=== PATIENT | female | born 1980 | race American Indian/Alaskan Native ===

== ENCOUNTER 2016-07-06 02:15 | Emergency (ER) | payer MEDICAID ==
[2016-07-06 03:38] VITALS: BP 128/73
== END 2016-07-06 03:21 | disposition left against medical advice (07) ==
LOC: ED 02:15
DX: R11.0 Nausea (principal); H53.149 Visual discomfort, unspecified; G43.909 Migraine, unspecified, not intractable, without status migrainosus; Z53.21 Procedure and treatment not carried out due to patient leaving prior to being seen by health care provider

== ENCOUNTER 2020-12-14 08:32 | Emergency (ER) | payer MEDICAID ==
[2020-12-14 08:45] VITALS: BP 138/76
[2020-12-14] MEDS ORDERED: ONDANSETRON 4 MG ODT TAB PO ONE (09:38)
--- NOTE | 2020-12-14 09:43 | Emergency Department Report ---
ED Headache HPI - General Chief Complaint: Headache Stated Complaint: MIGRAINE X 2 DAYS, NAUSEA, DIZZINESS Time Seen by Provider: 12/14/20 09:31 Source: patient - History of Present Illness Initial Comments: 40-year-old -[place] female presents to the emergency room complaining of migraine exacerbation for the last few days. Patient states that she feels like she is going to pass out. She states that she has a history of of migraines but has not had one in a while. Patient states that she has pressure behind her eyes. She admits to photophobia nausea that started this morning no vomiting at this time. She does admit to intermittent heavy cycles. Last menstrual period was 11/15/2020. She has tried Advil, Aleve and Tylenol with no relief. Patient currently does not have a primary care provider. She denies any trauma to her head. Does report 7 ringing of her ears. Timing/Duration: other (3 days) Quality: moderate, constant, pressure Head Injury Location: global Recent Head Trauma: occasional headaches Modifying Factors: improves with: exposure to light, movement Associated Symptoms: nausea/vomiting (No vomiting), other (Feeling off balance). denies: loss of consciousness, sinus infection, vision changes Allergies/Adverse Reactions: Allergies No Known Allergies Allergy (Verified 11/02/15 08:17) Home Medications: Ambulatory Orders HYDROcodone/APAP 5-325 [[place] 5/325] 1 each PO Q4HR PRN #10 tablet 11/02/15 Nitrofurantoin [place]/M-Cryst [Macrobid CAP] 100 mg PO Q12HR #7 capsule 11/02/15 Ondansetron [Zofran Odt] 4 mg PO Q8HR PRN #12 tab.rapdis 12/14/20 SUMAtriptan succinate [Imitrex] 25 mg PO QID PRN #12 tablet 12/14/20 ED Review of Systems ROS: Stated complaint: MIGRAINE X 2 DAYS, NAUSEA, DIZZINESS Other details as noted in HPI Comment: All other systems reviewed and negative ED Past Medical Hx - Past Medical History Previous Medical History?: Yes Hx Hypertension: Yes Additional medical history: anemia - Surgical History Past Surgical History?: Yes Additional Surgical History: , breast reduction - Social History Smoking Status: Never Smoker Substance Use Type: None - Medications Home Medications: Home Medications Medication Instructions Recorded Confirmed Last Taken Type HYDROcodone/APAP 5-325 [[place] 1 each PO Q4HR PRN #10 tablet 11/02/15 Unknown Rx 5/325] Nitrofurantoin [place]/M-Cryst 100 mg PO Q12HR #7 capsule 11/02/15 Unknown Rx [Macrobid CAP] Ondansetron [Zofran Odt] 4 mg PO Q8HR PRN #12 tab.rapdis 12/14/20 Unknown Rx SUMAtriptan succinate [Imitrex] 25 mg PO QID PRN #12 tablet 12/14/20 Unknown Rx ED Physical Exam - General Limitations: No Limitations General appearance: alert, in no apparent distress - Head Head exam: Present: atraumatic, normocephalic - Eye Eye exam: Present: normal appearance, PERRL, EOMI - ENT ENT exam: Present: normal orophraynx, mucous membranes moist - Neck Neck exam: Present: normal inspection, full ROM - Respiratory Respiratory exam: Absent: accessory muscle use - Cardiovascular Cardiovascular Exam: Present: regular rate - Extremities Exam Extremities exam: Present: normal inspection, full ROM - Back Exam Back exam: Present: normal inspection, full ROM - Neurological Exam Neurological exam: Present: alert, oriented X3, CN II-XII intact, normal gait - Expanded Neurological Exam Expanded Cranial nerves: EOM's Intact: Normal, Gag Reflex: Normal, Tongue Deviation: Normal, Nystagmus: Normal, Facial Sensation: Normal, Facial Palsy with Forehead Movement: Normal, Facial Palsy without Forehead Movement: Normal Cerebellar function: Finger to Nose: Normal, Heel to [place]: Normal, Romberg: Normal Upper motor neuron: Nitesh Neglect: Normal, Pronator Drift: Normal, Babinski Sign: Normal, Sensory Extinction: Normal Sensory exam: Upper Extremity Light Touch: Normal, Upper Extremity Pin Prick: Normal, Upper Extremity Temperature: Normal, UE 2 Point Discrimination: Normal, Lower Extremity Light Touch: Normal, Lower Extremity Pin Prick: Normal, Lower Extremity Temperature: Normal, LE 2 Point Discrimination: Normal Motor strength exam: RUE: 4, LUE: 4, RLE: 4, LLE: 4 Best Eye Response ([place]): (4) open spontaneously Best Motor Response ([place]evgen[place]): (6) obeys commands Best Verbal Response ([place]): (5) oriented Yevgeniy Total: 15 - Psychiatric Psychiatric exam: Present: normal affect, normal mood. Absent: depressed, agitated - Skin Skin exam: Present: warm, dry, intact, normal color. Absent: rash ED Course Vital Signs 12/14/20 08:36 Temperature 99.1 F Pulse Rate 69 Respiratory 16 Rate Blood Pressure 138/76 [Right] O2 Sat by Pulse 99 Oximetry - Reevaluation(s) Reevaluation #1: 12/14/20 12:00 Patient reports that her headache is starting to improve now it has only on the left side but is still dissipating. No longer having any nausea vomiting. ED Medical Decision Making - Lab Data Result diagrams: 12/14/20 09:53 - Medical Decision Making 40-year-old -[place] female presents to the emergency room complaining of migraine exacerbation for the last few days. Patient states that she feels like she is going to pass out. She states that she has a history of of migraines but has not had one in a while. Patient states that she has pressure behind her eyes. She admits to photophobia nausea that started this morning no vomiting at this time. She does admit to intermittent heavy cycles. Last menstrual period was 11/15/2020. She has tried Advil, Aleve and Tylenol with no relief. Patient currently does not have a primary care provider. She denies any trauma to her head. Does report some ringing of her ears. Order for Imitrex 25 mg p.o. and Zofran 4 mg ODT.. Critical care attestation.: If time is entered above; I have spent that time in minutes in the direct care of this critically ill patient, excluding procedure time. ED Disposition Clinical Impression: Migraine Qualifiers: Migraine type: unspecified Status migrainosus presence: with status migrainosus Intractability: intractable Qualified Code(s): G43.911 - Migraine, unspecified, intractable, with status migrainosus Disposition: - TO HOME OR SELFCARE Is pt being admited?: No Does the pt Need Aspirin: No Condition: Stable Instructions: Migraine Headache, [id number] Additional Instructions: Please take medication as prescribed. Do not exceed 200 mg of Imitrex in 24 hours. Be sure to increase your fluid intake. Follow-up with a primary care provider as well as a neurologist. Prescriptions: SUMAtriptan succinate [Imitrex] 25 mg PO QID PRN #12 tablet PRN Reason: Migraine Headache Ondansetron [Zofran Odt] 4 mg PO Q8HR PRN #12 tab.rapdis PRN Reason: Nausea And Vomiting Referrals: PRIMARY CARE, [Primary Care Provider] - 3-5 Days [facility] [Outside] - 3-5 Days [facility] [Provider Group] - 3-5 Days Forms: Work/School Release Form(ED)
[2020-12-14] MEDS ORDERED: SUMAtriptan SUCCINATE 25 MG TAB PO SCH (10:00)
[2020-12-14 10:12] LABS: Basophils % (Auto) 0.7 % (0.0-1.8); Eosinophils # (Auto) 0.1 K/mm3 (0.0-0.4); Eosinophils % (Auto) 2.7 % (0.0-4.3); Hematocrit 37.3 % (30.3-42.9); Hemoglobin 12.1 gm/dl (10.1-14.3); Lymphocytes # (Auto) 2.2 K/mm3 (1.2-5.4); Lymphocytes % (Auto) 44.4 % (13.4-35.0); Mean Corpuscular HGB Conc 32 % (30-34); Mean Corpuscular Volume 85 fl (79-97); Monocytes # (Auto) 0.3 K/mm3 (0.0-0.8); Monocytes % (Auto) 6.7 % (0.0-7.3); Platelet Count 291 K/mm3 (140-440); Red Blood Count 4.41 M/mm3 (3.65-5.03); Red Cell Distribution Width 16.5 % (13.2-15.2)
== END 2020-12-14 12:14 | disposition home or self-care (01) ==
LOC: ED 08:32
DX: G43.909 Migraine, unspecified, not intractable, without status migrainosus (principal); I10 Essential (primary) hypertension; Z98.890 Other specified postprocedural states; Z79.899 Other long term (current) drug therapy
CPT/HCPCS: 36415; 85025; Q0162